=== PATIENT | male | born 1955 | race Caucasian/White ===

== ENCOUNTER 2017-01-03 05:51 | Day surgery (SDC) | payer MEDICAID ==
[~2017-01-03] VITALS: Ht 182.9 cm; Wt 113.9 kg
[2017-01-03 06:21] VITALS: BP 117/89; PULSE 70; TEMP 98.4
[2017-01-03] MEDS ORDERED: ATIVAN 1MG T1 MG/TAB PO (06:43)
[2017-01-03] MEDS ORDERED: BUSPAR 30MG30 MG/TAB PO (06:44)
[2017-01-03] MEDS ORDERED: BENADRYL25 M2 PO (06:44)
[2017-01-03] MEDS ORDERED: CHLOR-PHEN12 MG PO (06:47)
[2017-01-03] MEDS ORDERED: CRESTOR20 MG PO (06:48)
[2017-01-03] MEDS ORDERED: BENADRYL50 MG PO (06:49)
[2017-01-03] MEDS ORDERED: NEURONTIN300 MG/CAP PO (06:49)
[2017-01-03] MEDS ORDERED: LATUDA60 MG PO (06:50)
[2017-01-03] MEDS ORDERED: LAMICTAL XR200 MG PO (06:50)
[2017-01-03] MEDS ORDERED: LEXAPRO20 MG PO (06:51)
[2017-01-03] MEDS ORDERED: ATIVAN 0.50.5 MG/TAB PO (06:52)
[2017-01-03] MEDS ORDERED: NORVASC 5MG5 MG/TAB PO (06:53)
[2017-01-03] MEDS ORDERED: GLUCOPHAGE1000 MG PO (06:53)
[2017-01-03] MEDS ORDERED: INDERAL 20MG20 MG PO (06:54)
[2017-01-03] MEDS ORDERED: REMERON 15M15 MG/TA1 PO (06:55)
[2017-01-03] MEDS ORDERED: ULTRAM 50MG TAB50 MG PO (06:55)
[2017-01-03] MEDS ORDERED: ZANTAC 150MG T150 MG PO (06:56)
[2017-01-03] MEDS ORDERED: TYLENOL 325MG325 MG PO (06:56)
[2017-01-03 07:25] VITALS: BP 142/72; PULSE 73; TEMP 98.4
[2017-01-03] MEDS ORDERED: PROTONIX 40MG T40 MG PO (07:39)
[2017-01-03 07:40] VITALS: BP 141/77; PULSE 70
[2017-01-03 07:55] VITALS: BP 139/79; PULSE 70
[2017-01-03 08:42] VITALS: BP 144/81; PULSE 79
== END 2017-01-03 08:00 | disposition home or self-care (01) ==
LOC: SDCO 05:51
DX: K21.0 Gastro-esophageal reflux disease with esophagitis (principal); K22.2 Esophageal obstruction; K44.9 Diaphragmatic hernia without obstruction or gangrene; R13.12 Dysphagia, oropharyngeal phase; F41.9 Anxiety disorder, unspecified; E11.9 Type 2 diabetes mellitus without complications; E78.00 Pure hypercholesterolemia, unspecified; F31.9 Bipolar disorder, unspecified; Z86.010 Personal history of colon polyps
CPT/HCPCS: C1726; J2704; J7030

== ENCOUNTER → 2017-05-13 | Outpatient (CLI) | payer OTHER ==
[~2017-05-13] MED LIST: ATIVAN 0.50.5 MG/TAB PO; ATIVAN 1MG T1 MG/TAB PO; BENADRYL25 M2 PO; BENADRYL50 MG PO; BUSPAR 30MG30 MG/TAB PO; CHLOR-PHEN12 MG PO; CRESTOR20 MG PO; GLUCOPHAGE1000 MG PO; INDERAL 20MG20 MG PO; LAMICTAL XR200 MG PO; LATUDA60 MG PO; LEXAPRO20 MG PO; NEURONTIN300 MG/CAP PO; NORVASC 5MG5 MG/TAB PO; PROTONIX 40MG T40 MG PO; REMERON 15M15 MG/TA1 PO; TYLENOL 325MG325 MG PO; ULTRAM 50MG TAB50 MG PO; ZANTAC 150MG T150 MG PO
== END ==
LOC: COL.RAD 09:36
DX: Z02.71 Encounter for disability determination (principal); M47.816 Spondylosis without myelopathy or radiculopathy, lumbar region; M41.86 Other forms of scoliosis, lumbar region; I25.10 Atherosclerotic heart disease of native coronary artery without angina pectoris

== ENCOUNTER 2018-01-25 13:45 | Emergency (ER) | payer MEDICAID ==
[~2018-01-25] VITALS: Ht 182.9 cm; Wt 109.1 kg
[2018-01-25 13:46] VITALS: TEMP 98.2
[2018-01-25] MEDS ORDERED: AMITRIPTYLINE H25 M1 PO (13:49)
[2018-01-25] MEDS ORDERED: LIPITOR 40MG TA40 MG PO (13:50)
[2018-01-25] MEDS ORDERED: BUSPAR 30MG30 MG/TAB PO ×2 (13:50→14:01)
[2018-01-25] MEDS ORDERED: KLONOPIN 0.5MG0.5 MG PO (13:51)
[2018-01-25] MEDS ORDERED: CYMBALTA 60MG60 MG PO (13:52)
[2018-01-25] MEDS ORDERED: DIABETA 5MG5 MG/TAB PO (13:53)
[2018-01-25] MEDS ORDERED: NEURONTIN300 MG/CAP PO (13:53)
[2018-01-25] MEDS ORDERED: CANA300T PO (13:54)
[2018-01-25] MEDS ORDERED: LAMICTAL200 MG PO (13:54)
[2018-01-25] MEDS ORDERED: LATUDA80 MG PO (13:55)
[2018-01-25] MEDS ORDERED: GLUCOPHAGE500 MG/TAB PO (13:56)
[2018-01-25] MEDS ORDERED: GLUCOPHAGE1000 MG PO (13:56)
[2018-01-25] MEDS ORDERED: INDERAL 20MG20 MG PO (13:57)
[2018-01-25] MEDS ORDERED: PROTONIX 40MG T40 MG PO (13:57)
[2018-01-25] MEDS ORDERED: NORVASC 5MG5 MG/TAB PO (13:57)
[2018-01-25] MEDS ORDERED: ZANTAC 150MG T150 MG PO (13:58)
[2018-01-25 15:46] VITALS: BP 110/72; PULSE 90
== END 2018-01-25 16:38 | disposition home or self-care (01) ==
LOC: COL.ER 13:45
DX: S50.02XA Contusion of left elbow, initial encounter (principal); S70.02XA Contusion of left hip, initial encounter; S80.02XA Contusion of left knee, initial encounter; R40.2412 Glasgow coma scale score 13-15, at arrival to emergency department; E11.9 Type 2 diabetes mellitus without complications; I10 Essential (primary) hypertension; E78.00 Pure hypercholesterolemia, unspecified; Z79.84 Long term (current) use of oral hypoglycemic drugs; W01.0XXA Fall on same level from slipping, tripping and stumbling without subsequent striking against object, initial encounter; Y92.129 Unspecified place in nursing home as the place of occurrence of the external cause
CPT/HCPCS: J2270; J2405

== ENCOUNTER → 2020-03-02 | Outpatient (CLI) | payer MEDICAID ==
[~2020-03-02] MED LIST changes: +AMITRIPTYLINE H25 M1 PO; +CANA300T PO; +CYMBALTA 60MG60 MG PO; +DIABETA 5MG5 MG/TAB PO; +GLUCOPHAGE500 MG/TAB PO; +KLONOPIN 0.5MG0.5 MG PO; +LAMICTAL200 MG PO; +LATUDA80 MG PO; +LIPITOR 40MG TA40 MG PO
== END ==
LOC: COL.RAD 14:42
DX: G20 Parkinson's disease (principal); G90.3 Multi-system degeneration of the autonomic nervous system; G44.309 Post-traumatic headache, unspecified, not intractable; F02.81 Dementia in other diseases classified elsewhere, unspecified severity, with behavioral disturbance; G31.9 Degenerative disease of nervous system, unspecified; I67.82 Cerebral ischemia

== ENCOUNTER → 2020-07-10 | Outpatient (CLI) | payer MEDICARE, MEDICAID | LOC: COL.RAD 11:36 | DX: G20 Parkinson's disease (principal); F02.81 Dementia in other diseases classified elsewhere, unspecified severity, with behavioral disturbance; F41.9 Anxiety disorder, unspecified; S29.9XXA Unspecified injury of thorax, initial encounter; W19.XXXA Unspecified fall, initial encounter ==

== ENCOUNTER 2020-10-20 13:59 | Emergency (ER) | payer MEDICARE, MEDICAID ==
[~2020-10-20] VITALS: Ht 182.9 cm; Wt 100.0 kg
[2020-10-20 14:00] VITALS: TEMP 98.9
[2020-10-20] MEDS ORDERED: TYLENOL 325MG325 MG PO (14:13)
[2020-10-20] MEDS ORDERED: SYMMETREL50 MG/5 ML PO (14:14)
[2020-10-20] MEDS ORDERED: LIPITOR 10MG10 MG PO (14:15)
[2020-10-20] MEDS ORDERED: CYMBALTA 60MG60 MG PO (14:16)
[2020-10-20] MEDS ORDERED: FLOMAX 0.40.4 MG/CAP PO (14:17)
[2020-10-20] MEDS ORDERED: NEURONTIN100 MG/CAP PO (14:17)
[2020-10-20] MEDS ORDERED: MIRALAX PA17 GM/Dose PO (14:19)
[2020-10-20] MEDS ORDERED: MAG-OX 400400 MG/TAB PO (14:19)
[2020-10-20] MEDS ORDERED: PROTONIX20 MG PO (14:20)
[2020-10-20] MEDS ORDERED: ALUM-MAG HYDROX30 ML PO (14:20)
[2020-10-20] MEDS ORDERED: PERCOCET 325 MG1 TA2 PO (14:21)
[2020-10-20] MEDS ORDERED: SEROQUEL 2525 MG/TAB PO (14:21)
[2020-10-20] MEDS ORDERED: TUMS500 MG (14:22)
[2020-10-20] MEDS ORDERED: EXELON9.5 MG/24 TD (14:22)
[2020-10-20 14:33] LABS: BASO % 0.6 % (0.0-2.0); EOS # 0.1 (0.0-0.7); EOS % 1.9 % (0-4.0); GRAN # 5.3 (1.4-6.5); HEMOGLOBIN 12.3 g/dl (13.5-18.0); LYMPH # 1.3 (1.2-3.4); LYMPH % 17.7 % (20.0-51.0); MEAN CELL VOLUME 86 fl (80.0-100.0); MEAN CORPUSCULAR HEMOGLOBIN 30 pg (27.0-31.0); MEAN CORPUSCULAR HGB CONC 34 g/dl (33.0-37.0); MEAN PLATELET VOLUME 9.4 fl (7.4-10.4); MONO # 0.4 (0.1-0.6); MONO % 5.4 % (1.7-9.3); PLATELET COUNT 264 K/mm3 (130-400); RED BLOOD COUNT 4.16 M/mm3 (4.20-5.60)
[2020-10-20 14:35] LABS: HEMATOCRIT 35.9 % (42.0-52.0)
[2020-10-20 14:42] LABS: ALBUMIN 3.7 gm/dL (3.5-5.0); BILIRUBIN,TOTAL 0.6 mg/dL (0.0-1.0); CALCIUM 9.2 mg/dL (8.4-10.2); CREATININE, serum 0.79 (0.66-1.25); POTASSIUM 4.9 mmol/L (3.4-5.0); TOTAL PROTEIN 6.4 gm/dL (6.4-8.2)
[2020-10-20 16:26] VITALS: BP 155/78; PULSE 88
== END 2020-10-20 17:04 | disposition home or self-care (01) ==
LOC: COL.ER 13:59
PROVIDERS: Physician Assistant
DX: S70.02XA Contusion of left hip, initial encounter (principal); S40.011A Contusion of right shoulder, initial encounter; G20 Parkinson's disease; F02.80 Dementia in other diseases classified elsewhere, unspecified severity, without behavioral disturbance, psychotic disturbance, mood disturbance, and anxiety; E78.5 Hyperlipidemia, unspecified; G89.29 Other chronic pain; F41.9 Anxiety disorder, unspecified; E11.40 Type 2 diabetes mellitus with diabetic neuropathy, unspecified; Z79.84 Long term (current) use of oral hypoglycemic drugs; W19.XXXA Unspecified fall, initial encounter; Y92.129 Unspecified place in nursing home as the place of occurrence of the external cause
CPT/HCPCS: J3010; J7030

== ENCOUNTER → 2020-12-20 | Outpatient (CLI) | payer MEDICARE, MEDICAID ==
[~2020-12-20] MED LIST changes: +ALUM-MAG HYDROX30 ML PO; +EXELON9.5 MG/24 TD; +FLOMAX 0.40.4 MG/CAP PO; +LIPITOR 10MG10 MG PO; +MAG-OX 400400 MG/TAB PO; +MIRALAX PA17 GM/Dose PO; +NEURONTIN100 MG/CAP PO; +PERCOCET 325 MG1 TA2 PO; +PROTONIX20 MG PO; +SEROQUEL 2525 MG/TAB PO; +SYMMETREL50 MG/5 ML PO; +TUMS500 MG
== END ==
LOC: MHCPAIN 10:24
DX: M47.812 Spondylosis without myelopathy or radiculopathy, cervical region (principal); M54.2 Cervicalgia; G20 Parkinson's disease
CPT/HCPCS: G0463